=== PATIENT | female | born 2005 | race Caucasian/White ===

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

== ENCOUNTER 2025-02-02 16:22 | Emergency (ER) | payer MEDICAID, OTHER ==
[~2025-02-02] VITALS: Ht 154.9 cm; Wt 104.5 kg
[2025-02-02 17:21] LABS: Urine Protein, UAD 1+ (Negative)
[2025-02-02] MEDS: ACETAMINOPHEN 325 MG TAB PO ONE (18:39)
[2025-02-02] MEDS ORDERED: CEPH500C PO (18:43)
[2025-02-02] MEDS ORDERED: ACET500T58 PO (18:43)
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
--- NOTE | 2025-02-02 19:02 | DVH ---
CLINICAL HISTORY: HEAD INJURY TECHNIQUE: Helical scanning was performed of the head from the skull base to the vertex. Multiplanar reconstructions were performed. This exam was performed according to our departmental dose optimizat ion program. Up-to-date CT equipment and radiation dose reduction techniques are utilized as appropri ate. CTDI 58.9 DLP 953 COMPARISON: CT BRAIN on DOS: 07/23/23 FINDINGS: There is no evidence for acute intracranial hemorrhage, acute ischemic changes, mass, mass effect, or extra-axial fluid collection. There is no hydrocephalus or midline shift. There is no effacement of the cerebral sulci and basal subarachnoid cisterns. The hartley-white matter differentiation is well rico ntained. The imaged paranasal sinuses demonstrate mild left maxillary sinus microsol thickening trace fluid. IMPRESSION: NO ACUTE INTRACRANIAL ABNORMALITY SEEN. TRACE LEFT MATTER SIZE MICROSOL THICKENING AND FLUID.
--- NOTE | 2025-02-02 19:20 | DVH ---
CLINICAL INDICATION: LEFT WRIST PAIN TECHNIQUE: XY L WRIST 3+ VIEW XRAY Comparison: XY R WRIST 3+ VIEW XRAY on DOS: 02/02/25, XY R HAND 3 VIEW XRAY on DOS: 02/02/25 FINDINGS/IMPRESSION: : There is no evidence of acute fracture or dislocation. Soft tissues are unremarkable.
--- NOTE | 2025-02-02 19:23 | DVH ---
CLINICAL INDICATION: COCCYX PAIN TECHNIQUE: 3 radiographic views of the sacrum and coccyx were obtained. Comparison: CT L-SPINE on DOS: 07/23/23, SACRUM AND COCCYX on DOS: 02/10/21, LUMBAR SPINE LTD on DOS: FINDINGS/IMPRESSION: There is no evidence of acute fracture or dislocation. Lumbosacral transitional vertebra. If symptoms persist, consider CT for further evaluation.
--- NOTE | 2025-02-02 19:28 | DVH ---
CLINICAL INDICATION: RIGHT HAND and wrist PAIN TECHNIQUE: XY R HAND 3 VIEW XRAY, XY R WRIST 3+ VIEW XRAY Comparison: None FINDINGS/IMPRESSION: : There is no evidence of acute fracture or dislocation in the right hand or wrist. Soft tissues are unremarkable.
[2025-02-02 20:13] VITALS: BP 107/75; TEMP 98.1
[2025-02-02 20:14] VITALS: PULSE 87; RESP 18; O2SAT 98
== END 2025-02-02 20:44 | disposition home or self-care (01) ==
LOC: EDBD 16:22 → ER 16:22 → EDUNIT# 16:22 → ER 20:44
DX: S30.0XXA Contusion of lower back and pelvis, initial encounter (principal); S60.221A Contusion of right hand, initial encounter; S00.01XA Abrasion of scalp, initial encounter; S60.811A Abrasion of right wrist, initial encounter; S60.812A Abrasion of left wrist, initial encounter; S60.511A Abrasion of right hand, initial encounter; S09.8XXA Other specified injuries of head, initial encounter; N39.0 Urinary tract infection, site not specified; Z79.899 Other long term (current) drug therapy; Z88.0 Allergy status to penicillin; W01.0XXA Fall on same level from slipping, tripping and stumbling without subsequent striking against object, initial encounter; Y93.89 Activity, other specified; Y92.89 Other specified places as the place of occurrence of the external cause; Y99.8 Other external cause status
CPT/HCPCS: 70450; 72220; 73110; 73130; 81001; 81025